=== PATIENT | female | born 1960 | race Caucasian/White ===

== ENCOUNTER 2016-12-09 14:03 | Observation (INO) | payer OTHER, SELFPAY ==
[2016-12-09] VITALS (9 sets, daily range): BP systolic 106–164; BP diastolic 66–98; PULSE 75–94; RESP 16–18; TEMP 35.7–37.3; O2SAT 88–99; BMI 42.3; BMI 43.6
--- NOTE | 2016-12-09 14:11 | CT_ITS ---
STUDY: CT ABDOMEN AND PELVIS WITHOUT CONTRAST REASON FOR EXAM: Female, 56 years old. Right-sided abdominal pain today RADIATION DOSAGE (If Supplied By Facility): CTDIvol = ( 24.10 ) mGy, DLP = ( 1342.61 ) mGycm TECHNIQUE: Transaxial images were obtained from the dome of the diaphragm to the symphysis pubis without oral contrast, and without intravenous contrast. Sagittal and coronal images were reconstructed. Individualized dose optimization techniques were used for this CT. COMPARISON: None. FINDINGS: The visualized lung bases are unremarkable. The visualized portions of the heart are within normal limits. Within the left lobe of the liver, there is a well-defined hypodensity, likely cyst measuring 2.2 x 1.6 cm. Remainder of the liver is within normal limits. There is a solitary gallstone. Normal spleen. Normal pancreas. Normal bilateral adrenal glands. Normal right kidney. Left extrarenal pelvis. No evidence of hydronephrosis. No evidence of left hydroureter. Normal visualized stomach. Normal small intestine. Normal colon. There is a tubular, thick-walled appendix (>7mm), consistent with acute appendicitis. Uncomplicated appendicitis. Normal abdominal aorta. Normal inferior vena cava. Normal retroperitoneum. Normal urinary bladder. There is absence of the uterus consistent with a prior hysterectomy. There is a right-sided inguinal hernia containing adipose tissue. There are diffuse degenerative changes of the visualized lumbar spine. CT/Abdomen/Pelvis without Cont IMPRESSION: Uncomplicated acute appendicitis Electronically Signed: Lopez Zafar DO at 14:57 EDT Tel , Service support ,
[2016-12-09] MEDS: Ondansetron 4 MG/2 ML Vial IV ×2 (14:33→21:21)
[2016-12-09] MEDS: 0.9% Normal Saline 1,000 ML 125 ML IV (14:33)
[2016-12-09 14:35] LABS: Absolute Lymphocyte Count 0.73 X10^3/ul (0.83-4.51); Absolute Neutrophil Count 12.7 X10^3/uL (2.0-7.7); Basophil# 0.01 X10^3/uL; Basophil% 0.1 % (0-1); Hematocrit 38.7 % (37-47); Hemoglobin 12.3 g/dl (12.0-15.0); Lymphocyte # 0.73 X10^3/ul (4.0); Lymphocyte % 5.3 % (19-41); Mean Corp Hgb Conc 31.8 g/gl (32-36); Mean Corpuscular Hgb 26.9 pg (27.0-32.0); Mean Corpuscular Volume 84.7 fL (81-99); Mean Platelet Vol. 10.3 fl (6.2-12.0); Monocyte# 0.33 X10^3/uL; Monocyte% 2.4 % (0-10); Neutrophil # 12.67 X10^3/uL (2.7-7.7); Neutrophil % 92.1 % (47-70); POSITIVE COUNT NO; POSITIVE DIFFERENTIAL NO; POSITIVE MORPHOLOGY NO; Platelet Count 186 K/mm3 (150-450); RBC Distribution Width CV 14.5 % (11.6-14.6); Red Blood Count 4.57 M/mm3 (4.2-5.4); White Blood Count 13.8 K/mm3 (4.4-11.0)
[2016-12-09 14:42] LABS: Bacteria 0 SEEN /hpf (None Seen); Mucous, Urine 0 SEEN /hpf (<or=2+); Red Blood Cells-Urine 0 SEEN /hpf (0-5); White Blood Cells 0 SEEN /hpf (0-5)
[2016-12-09 14:45] LABS: Color, Urine Yellow (Yellow); Glucose, Dipstick Normal (Normal); Ketone-Dipstick 5 mg/dl (Negative); Leukocyte Esterase-Dipstick Negative /ul (Negative); Nitrite-Dipstick Negative (Negative); Occult Blood-Urine 50 /ul (Negative); Protein-Dipstick 15 mg/dl (Negative); Urine Bilirubin Dipstick Negative (Negative); Urine Clarity Clear (Clear); Urine Urobilinogen Normal (Normal)
[2016-12-09 14:50] LABS: Squamous Epithelial Cells - UA 0-5 SEEN /hpf (5-10)
[2016-12-09 14:52] LABS: AST(SGOT) 14 U/L (15-37); Alanine Aminotransfer ALT/SGPT 20 U/L (12-78); Albumin, Serum 3.5 g/dL (3.4-5.0); Alkaline Phosphatase 112 U/L (45-117); Anion Gap 8 (5-15); BUN 12 mg/dL (7-18); BUN/Creat Ratio 24.4 RATIO (10-20); Bilirubin, Direct 0.12 mg/dL (0.00-0.30); Calcium,Total 8.7 mg/dL (8.5-10.1); Chloride 106 mmol/L (98-107); Creatinine, Serum 0.49 mg/dL (0.55-1.02); EST Glomerular Filtration Rate 139 mL/min (>60); Est Glom Filt Rate - Afr Amer 168 mL/min (>60); Estimated Creatinine Clearance 141.93 ml/min; Globulin 4.1 g/dL (2.3-3.5); Glucose 119 mg/dL (70-110); Lipase 78 U/L (73-393); Protein, Total 7.6 g/dL (6.4-8.2); Sodium Level 140 mmol/L (136-145)
--- NOTE | 2016-12-09 15:13 | ED.VISSUMM ---
- ER Visit Summary Date of Service: 12/09/16 Chief Complaint: [] Right upper quadrant pain today History of Present Illness: The patient is a 56 F [] right upper quadrant pain today it is getting progressively worse she has had nausea but no vomiting no fever she has no abnormalities with bowel bladder habits that have been normal she has no history of abdominal ailment such as gallbladder disease ulcers, in fact she denies really any significant past history Physical Examination: [] Racing around the room holding her right upper quadrant head neck she is a very large woman head neck chest unremarkable the abdomen there is some mild pain to the right upper quadrant is a vague pain to the right middle quadrant there is no flank pain in the abdomen is is is obese upper lower extremities otherwise unremarkable neurologically she is normal her back is unremarkable Test Results: [] Emergency Department Course and Treatment: [] Her white count is 13.[address] of the abdomen show signs of appendicitis see that report a solitary gallstone she has been medicated her UA and chemistries are unremarkable At this time I spoke with the patient spoke with Dr. Russell asset protection manager for surgery will be in to see the patient for further management of all the above Treatment Plan: [] Disposition: [] Admit stable Impression: [] Abdominal pain, acute appendicitis, surgery evaluation underway ED Disposition - Plan for ED Patient: Chief Complaint: Abd Pain Referrals: Care Physician,No Primary [Primary Care Provider] -
--- NOTE | 2016-12-09 15:49 | PCM.HP.STD ---
Problem List (1) Acute appendicitis Status: Acute Qualifiers: Acute appendicitis type: unspecified acute appendicitis type Qualified Code(s): K35.80 - Unspecified acute appendicitis History of Present Illness Date of Admission: 12/09/16 The patient is a 56 year old F presents after being awoken this morning at 3 AM with generalized abdominal pain and the need to go the bathroom. She had a loose bowel movement. She reports no fevers or chills. She said that she had some dry heaving this morning. She is not having vomiting. She does not describe any nausea at this time. She says that her abdominal pain is generalized in the lower abdomen. Past Medical History Allergies No Known Allergies Allergy (Verified 12/09/16 14:03) Home Medications: Ambulatory Orders Medication Instructions Recorded No Known/Unobtainable [No Known 12/09/16 Home Medications] Surgical History: hysterectomy, - - Tubal ligation Lives: Spouse/ Significant Other Smoking Status: Never smoker Alcohol: None Drugs: None - *Family History Maternal History Items: No pertinent history Review of Systems Constitutional: Reports: Anorexia. Denies: Chills, Fever, Weight Change HEENT: Denies: Difficulty Hearing, Difficulty Swallowing Cardiovascular: Denies: Chest Pain Respiratory: Denies: Cough, Shortness of Breath Gastrointestinal: Reports: Abdominal Pain - Lower abdominal pain. Denies: Nausea, Vomiting Genitourinary: Denies: Dysuria Musculoskeletal: Denies: Joint Tenderness Skin: Denies: Dryness Neurological: Denies: Balance problems Psychiatric: Denies: Anxiety, Depression Hematologic/ Lymphatic: Denies: Anemia VTE Information - Inpt Only VTE Present on Admission: No VTE Mechan Device Prophylaxis: SCD's VTE Pharm Prophylaxis ordered?: Yes Patient Problems: Active and Suspected Problems Acute appendicitis (Acute) - Physical Exam General: Alert, Oriented x3, Cooperative HEENT: Atraumatic, PERRLA, EOMI, Normocephalic Neck: Supple, No JVD Lungs: Clear to auscultation, Normal air movement Cardiovascular: Regular rate, Regular Rhythm Abdomen: Soft, Tender - Tender in the right lower and right upper quadrant. No guarding or rebound Extremities: No edema, Capillary Refill Less than 3 Seconds Skin: No rashes, No breakdown Musculoskeletal: No Tenderness to Palpation of Joints or Extremities Lymphatic: No Cervical, Supraclavicular, or Inguinal Adenopathy Neurological: Cranial nerves II-XII grossly intact Psych/Mental Status: Normal Affect, Appropriate Vital Signs Temp Pulse Resp BP Pulse Ox 96.2 F 90 18 164/98 97 12/09/16 14:03 12/09/16 14:03 12/09/16 14:03 12/09/16 14:03 12/09/16 14:03 Oxygen Delivery Method Room Air Weight: 133.719 kg Body Mass Index (BMI) 42.3 Laboratory Tests Past 24 Hrs 12/09/16 12/09/16 12/09/16 14:25 14:25 14:25 WBC 13.8 H RBC 4.57 Hgb 12.3 Hct 38.7 MCV 84.7 MCH 26.9 L MCHC 31.8 L RDW 14.5 RDW Differential 45.0 H Plt Count 186 MPV 10.3 Immature Gran % (Auto) 0.100 Neut % (Auto) 92.1 H Lymph % (Auto) 5.3 L [place] % (Auto) 2.4 Eos % (Auto) 0.0 Baso % (Auto) 0.1 Absolute Neuts (auto) 12.7 H Absolute Lymphs (auto) 0.73 L Total Counted Not Reportable Sodium 140 Potassium 4.0 Chloride 106 Carbon Dioxide 26.0 Anion Gap 8 BUN 12 Creatinine 0.49 L Estim Creat Clear Calc 141.93 Est GFR (MDRD) Af Amer 168 Est GFR (MDRD) Non-Af 139 BUN/Creatinine Ratio 24.4 H Glucose 119 H Calcium 8.7 Total Bilirubin 0.40 Direct Bilirubin 0.12 AST 14 L ALT 20 Alkaline Phosphatase 112 Total Protein 7.6 Albumin 3.5 Globulin 4.1 H Lipase 78 Serum , Qual Pending Urine Color Urine Clarity Urine pH Ur Specific [place] Urine Protein Urine Glucose (UA) Urine Ketones Urine Occult Blood Urine Nitrite Urine Bilirubin Urine Urobilinogen Ur Leukocyte Esterase Urine RBC Urine WBC Ur Squamous Epith Cells Urine Bacteria Urine Mucus 12/09/16 14:35 WBC RBC Hgb Hct MCV MCH MCHC RDW RDW Differential Plt Count MPV Immature Gran % (Auto) Neut % (Auto) Lymph % (Auto) [place] % (Auto) Eos % (Auto) Baso % (Auto) Absolute Neuts (auto) Absolute Lymphs (auto) Total Counted Sodium Potassium Chloride Carbon Dioxide Anion Gap BUN Creatinine Estim Creat Clear Calc Est GFR (MDRD) Af Amer Est GFR (MDRD) Non-Af BUN/Creatinine Ratio Glucose Calcium Total Bilirubin Direct Bilirubin AST ALT Alkaline Phosphatase Total Protein Albumin Globulin Lipase Serum , Qual Urine Color Yellow Urine Clarity Clear Urine pH 7.0 Ur Specific [place] 1.010 Urine Protein 15 H Urine Glucose (UA) Normal Urine Ketones 5 H Urine Occult Blood 50 H Urine Nitrite Negative Urine Bilirubin Negative Urine Urobilinogen Normal Ur Leukocyte Esterase Negative Urine RBC 0 SEEN Urine WBC 0 SEEN Ur Squamous Epith Cells 0-5 SEEN Urine Bacteria 0 SEEN Urine Mucus 0 SEEN Clinical Impression(s) from Imaging Studies Abdomen/Pelvis CT 12/09/16 14:11 IMPRESSION: Uncomplicated acute appendicitis Electronically Signed: Lopez Zafar DO at 14:57 EDT Tel , Service support , Assessment/Plan Active and Suspected Problems Acute appendicitis (Acute) 56-year-old female with acute appendicitis 1. Patient appears to have acute appendicitis on her CT. She also has leukocytosis and right lower quadrant pain. I described these findings to her as well as a described the procedure of laparoscopic appendectomy. I described the risks of the procedure including but not limited to bleeding, infection, damage to surrounding organs such as bowel. The patient understands the risks and is want to proceed with surgery. 2. The patient will give perioperative antibiotics and at least one more dose this evening. I will admit her for observation after surgery with IV fluids and clear liquids and plan for discharge tomorrow morning if she is tolerating them well. Vishal Russell MD Pager: [facility] [address], [place] [phone] Office:
--- NOTE | 2016-12-09 15:54 | HP.PCM_ITS ---
Problem List (1) Acute appendicitis Status: Acute Qualifiers: Acute appendicitis type: unspecified acute appendicitis type Qualified Code (s): K35.80 - Unspecified acute appendicitis History of Present Illness Date of Admission: 12/09/16 The patient is a 56 year old F presents after being awoken this morning at 3 AM with generalized abdominal pain and the need to go the bathroom. She had a loose bowel movement. She reports no fevers or chills. She said that she had some dry heaving this morning. She is not having vomiting. She does not describe any nausea at this time. She says that her abdominal pain is generalized in the lower abdomen. Past Medical History Allergies No Known Allergies Allergy (Verified 12/09/16 14:03) Home Medications: Ambulatory Orders Medication Instructions Recorded No Known/Unobtainable [No Known 12/09/16 Home Medications] Surgical History: hysterectomy, - - Tubal ligation Lives: Spouse/ Significant Other Smoking Status: Never smoker Alcohol: None Drugs: None - *Family History Maternal History Items: No pertinent history Review of Systems Constitutional: Reports: Anorexia. Denies: Chills, Fever, Weight Change HEENT: Denies: Difficulty Hearing, Difficulty Swallowing Cardiovascular: Denies: Chest Pain Respiratory: Denies: Cough, Shortness of Breath Gastrointestinal: Reports: Abdominal Pain - Lower abdominal pain. Denies: Nausea, Vomiting Genitourinary: Denies: Dysuria Musculoskeletal: Denies: Joint Tenderness Skin: Denies: Dryness Neurological: Denies: Balance problems Psychiatric: Denies: Anxiety, Depression Hematologic/ Lymphatic: Denies: Anemia VTE Information - Inpt Only VTE Present on Admission: No VTE Mechan Device Prophylaxis: SCD's VTE Pharm Prophylaxis ordered?: Yes Patient Problems: Active and Suspected Problems Acute appendicitis (Acute) - Physical Exam General: Alert, Oriented x3, Cooperative HEENT: Atraumatic, PERRLA, EOMI, Normocephalic Neck: Supple, No JVD Lungs: Clear to auscultation, Normal air movement Cardiovascular: Regular rate, Regular Rhythm Abdomen: Soft, Tender - Tender in the right lower and right upper quadrant. No guarding or rebound Extremities: No edema, Capillary Refill Less than 3 Seconds Skin: No rashes, No breakdown Musculoskeletal: No Tenderness to Palpation of Joints or Extremities Lymphatic: No Cervical, Supraclavicular, or Inguinal Adenopathy Neurological: Cranial nerves II-XII grossly intact Psych/Mental Status: Normal Affect, Appropriate Vital Signs Temp Pulse Resp BP Pulse Ox 96.2 F 90 18 164/98 97 12/09/16 14:03 12/09/16 14:03 12/09/16 14:03 12/09/16 14:03 12/09/16 14:03 Oxygen Delivery Method Room Air Weight: 133.719 kg Body Mass Index (BMI) 42.3 Laboratory Tests Past 24 Hrs 12/09/16 12/09/16 12/09/16 14:25 14:25 14:25 WBC 13.8 H RBC 4.57 Hgb 12.3 Hct 38.7 MCV 84.7 MCH 26.9 L MCHC 31.8 L RDW 14.5 RDW Differential 45.0 H Plt Count 186 MPV 10.3 Immature Gran % (Auto) 0.100 Neut % (Auto) 92.1 H Lymph % (Auto) 5.3 L [place] % (Auto) 2.4 Eos % (Auto) 0.0 Baso % (Auto) 0.1 Absolute Neuts (auto) 12.7 H Absolute Lymphs (auto) 0.73 L Total Counted Not Reportable Sodium 140 Potassium 4.0 Chloride 106 Carbon Dioxide 26.0 Anion Gap 8 BUN 12 Creatinine 0.49 L Estim Creat Clear Calc 141.93 Est GFR (MDRD) Af Amer 168 Est GFR (MDRD) Non-Af 139 BUN/Creatinine Ratio 24.4 H Glucose 119 H Calcium 8.7 Total Bilirubin 0.40 Direct Bilirubin 0.12 AST 14 L ALT 20 Alkaline Phosphatase 112 Total Protein 7.6 Albumin 3.5 Globulin 4.1 H Lipase 78 Serum , Qual Pending Urine Color Urine Clarity Urine pH Ur Specific [place] Urine Protein Urine Glucose (UA) Urine Ketones Urine Occult Blood Urine Nitrite Urine Bilirubin Urine Urobilinogen Ur Leukocyte Esterase Urine RBC Urine WBC Ur Squamous Epith Cells Urine Bacteria Urine Mucus 12/09/16 14:35 WBC RBC Hgb Hct MCV MCH MCHC RDW RDW Differential Plt Count MPV Immature Gran % (Auto) Neut % (Auto) Lymph % (Auto) [place] % (Auto) Eos % (Auto) Baso % (Auto) Absolute Neuts (auto) Absolute Lymphs (auto) Total Counted Sodium Potassium Chloride Carbon Dioxide Anion Gap BUN Creatinine Estim Creat Clear Calc Est GFR (MDRD) Af Amer Est GFR (MDRD) Non-Af BUN/Creatinine Ratio Glucose Calcium Total Bilirubin Direct Bilirubin AST ALT Alkaline Phosphatase Total Protein Albumin Globulin Lipase Serum , Qual Urine Color Yellow Urine Clarity Clear Urine pH 7.0 Ur Specific [place] 1.010 Urine Protein 15 H Urine Glucose (UA) Normal Urine Ketones 5 H Urine Occult Blood 50 H Urine Nitrite Negative Urine Bilirubin Negative Urine Urobilinogen Normal Ur Leukocyte Esterase Negative Urine RBC 0 SEEN Urine WBC 0 SEEN Ur Squamous Epith Cells 0-5 SEEN Urine Bacteria 0 SEEN Urine Mucus 0 SEEN Clinical Impression(s) from Imaging Studies Abdomen/Pelvis CT 12/09/16 14:11 IMPRESSION: Uncomplicated acute appendicitis Electronically Signed: Lopez Zafar DO at 14:57 EDT Tel , Service support , Assessment/Plan Active and Suspected Problems Acute appendicitis (Acute) 56-year-old female with acute appendicitis 1. Patient appears to have acute appendicitis on her CT. She also has leukocytosis and right lower quadrant pain. I described these findings to her as well as a described the procedure of laparoscopic appendectomy. I described the risks of the procedure including but not limited to bleeding, infection, damage to surrounding organs such as bowel. The patient understands the risks and is want to proceed with surgery. 2. The patient will give perioperative antibiotics and at least one more dose this evening. I will admit her for observation after surgery with IV fluids and clear liquids and plan for discharge tomorrow morning if she is tolerating them well. Vishal Russell MD Pager: [facility] [address], [place] [phone] Office:
--- NOTE | 2016-12-09 16:42 | APP_PTH ---
PATIENT: JOVAN KWON LOC: MS3 U#:[id number] AGE/SX: 56/F ROOM: MS312 RE12/09/[address]: Dr. Vishal Russell MD : 1960 BED: 1 DIS: 12/10/2016 SPEC #: [id number] RECD: 12/11/16 10:56 STATUS: MARQUEZ REAmanda #: [id number] IRVING: 12/09/16 16:[address]: Vishal Russell DEPT: SURGICAL PATHOLOGY RECD BY: Shree Gaffney ENTERED: 12/11/16 10:56 SP TYPE: APPENDIX OTHR DR: No Primary Care Phys Tissues: Appendix, NOS Procedures: Surgery Specimen Level III HEADER OPERATION: Laparoscopic appendectomy PRE-OP DIAGNOSIS: Acute appendicitis TISSUE SUBMITTED: Appendix MICROSCOPIC DIAGNOSIS Appendix: Acute appendicitis and periappendicitis. SJ:dmitry 12/12/16 MICROSCOPIC DESCRIPTION Slides are reviewed. GROSS DESCRIPTION Received is one container labeled with the patient's name and designated appendix. The specimen consists of an L-shaped appendix measuring 11 cm in length and up to 1.2 cm in average diameter. The attached periappendiceal adipose tissue measures up to 3.5 cm in width. The serosal surface is covered with toro purulent exudate. No obvious perforation is identified. The lumen contains fecal material. The mucosa is congested and hemorrhagic. No fecalith is identified. Recording Clerk sections are submitted in one cassette. / SJ:dmitry 12/11/16 TC:2 CPT: 96777
[2016-12-09] MEDS: Bupiv/Epi 0.25% 30 ML Vial (17:17)
--- NOTE | 2016-12-09 17:31 | OP.PCM_ITS ---
Problem List (1) Acute appendicitis Status: Acute Qualifiers: Acute appendicitis type: unspecified acute appendicitis type Qualified Code (s): K35.80 - Unspecified acute appendicitis Report of Operation Date of Procedure: 12/09/16 Pre-Operative Diagnosis: Acute appendicitis Post-Operative Diagnosis: Same Surgery/Procedure Performed:: Laparoscopic appendectomy Description of Surgical Findings:: Patient had an inflamed appendix. Wound class III. Specimen's removed: Appendix Description of Procedure: The patient was brought into the operating room and general anesthesia was induced. The left arm was tucked and the abdomen was prepped and draped in usual sterile fashion. A small midline incision was made superior to the umbilicus and deepened to the level of the fascia. The fascia was elevated and incised. The peritoneum was also elevated and incised. A finger sweep was performed and a balloon trocar was placed into the abdomen and inflated. The abdomen was insufflated to 15 mmHg and the camera was inserted and the abdomen was inspected for any injuries upon entering the abdomen. There were none. The patient did have adhesions in the lower abdomen. The patient was placed in Trendelenburg position and a 5 mm ports placed in the left lower quadrant and suprapubic areas under direct visualization avoiding the adhesions. Next using atraumatic bowel graspers the appendix was identified. The appendix was grasped and elevated and a harmonic scalpel was used to take down the mesoappendix. A stapler was used to come across the base of the appendix. The appendix was then placed in Endo Catch bag and removed through the umbilical incision. The staple line was inspected and found to be hemostatic and intact. The 2 5 mm ports are removed under direct visualization. The balloon trocar was deflated and removed and all the air was removed from the abdomen. The umbilical incision fascia was closed with an 0 Vicryl [id number] suture. The incisions were then irrigated with saline and dried. Local anesthetic was injected into the incision sites. The skin incisions were then closed with interrupted 4-0 Monocryl suture and Steri-Strips. Bandages were applied and the patient was awoken and taken to PACU in stable condition. Patient tolerated the procedure well. - Admit VTE Documentation VTE Mechan Device Prophylaxis: SCD's
[2016-12-09] MEDS: Dextrose 5%-Lactated Ringers 1,000 ML 125 ML IV (18:51)
[2016-12-09] MEDS: 0.9% NaCl Peripheral Flush Adult/Peds IV (21:21)
[2016-12-09] MEDS: Acetaminophen 325 MG Tablet 650 MG PO (22:24)
[2016-12-10 02:15] VITALS: BP 132/79; PULSE 86; RESP 18; TEMP 36.6; O2SAT 96
[2016-12-10] MEDS: Dextrose 5%-Lactated Ringers 1,000 ML 125 ML IV ×2 (02:24→11:52)
[2016-12-10] MEDS: 0.9% NaCl Peripheral Flush Adult/Peds IV (07:27)
[2016-12-10] MEDS: Ondansetron 4 MG/2 ML Vial IV (07:27)
[2016-12-10 08:09] VITALS: BP 121/68; PULSE 72; RESP 20; TEMP 36.5; O2SAT 94
[2016-12-10 08:11] VITALS: O2SAT 91
--- NOTE | 2016-12-10 08:49 | PN.SURG_ITS ---
Patient Problems: Active and Suspected Problems Acute appendicitis (Acute) Subjective: Patient reports that she is having nausea this morning. She has not vomited. She has no abdominal pain. She also feels like she has a severe headache which may be a migraine. - Physical Exam General: Alert, Oriented x3, Cooperative, No apparent distress HEENT: Atraumatic Neck: Supple Lungs: Normal air movement Cardiovascular: Regular rate, Regular Rhythm Abdomen: Soft, Non Tender, Non-Distended, - - Incisions are clean dry and intact Skin: No rashes Musculoskeletal: No Tenderness to Palpation of Joints or Extremities Neurological: Cranial nerves II-XII grossly intact Psych/Mental Status: Normal Affect Vital Signs Temp Pulse Resp BP Pulse Ox 97.7 F 72 20 121/68 91 12/10/16 08:09 12/10/16 08:09 12/10/16 08:09 12/10/16 08:09 12/10/16 08:11 Oxygen Flow Rate 1 Oxygen Delivery Method Room Air Weight: 137.9 kg Body Mass Index (BMI) 43.6 Intake and Output for Last 24 Hours 12/08/16 12/09/16 12/10/16 23:59 23:59 23:59 Intake Total 1700 1886 Output Total 180 Balance 1700 1706 Assessment/Plan Active and Suspected Problems Acute appendicitis (Acute) 56-year-old female with acute appendicitis status post laparoscopic appendectomy , POD 1 1. Patient has nausea and headache which may be related anesthesia or migraine. Continue p.o. pain medications as needed for headache. The patient also reports she is not taking anything by mouth yet. Once she is tolerating a diet she will be discharged home. Vishal Russell MD Pager: [facility] [address], [address] [phone] Office:
--- NOTE | 2016-12-10 08:51 | PCM.DC.APPY ---
Discharge Diet: Light diet - advance as tolerated Discharge Activity: May Not Drive - for 3-5 days or while taking narcotic pain meds. May shower in (days): 1 Lifting Restrictions: 20 lbs for 2 weeks Call your doctor if your incision/area has: Continuous Slow Oozing, Sudden Increased Bleeding, Increased Pain/ Swelling, Increased Redness, Foul Smelling Discharge Call your doctor if you observe: Fever of 101 or Higher Suture Line Care: Avoid Pulling/Pushing, Avoid Pinching/Bending Additional Dressing/Incision Instructions:: Keep dressing clean and dry. Change or remove dressing in 2 days. Leave steri strips for 1 week. May protect with a gauze bandaid. Medications to take at Discharge Hydrocodone Bitart/Apap 5-325 [[place] 5/325] 1 - 2 tablet PO Q4H PRN PRN #30 tablet 12/10/16 Allergies/Adverse Reactions: Allergies No Known Allergies Allergy (Verified 12/09/16 14:03) The following prescriptions were given: Hydrocodone Bitart/Apap 5-325 [[place] 5/325] 1 - 2 tablet PO Q4H PRN PRN #30 tablet PRN Reason: Severe Pain (-12/12) Primary Care Physician: Care Physician,No Primary [Primary Care Provider] - Please Follow Up With: Vishal Russell When: call sunday to make 2 week follow up appt [phone]
--- NOTE | 2016-12-10 08:53 | DS.PCM_ITS ---
Discharge Date and Diagnosis Date of Admission: 12/09/16 Date of Discharge: 12/10/16 - Primary Discharge Diagnosis Active and Suspected Problems Acute appendicitis (Acute) Hospital Course and Treatment Imaging Results: Clinical Impression(s) from Imaging Studies Abdomen/Pelvis CT 12/09/16 14:11 IMPRESSION: Uncomplicated acute appendicitis Electronically Signed: Lopez Zafar at 14:57 EDT Tel , Service support , Operations: appendectomy Procedures: None Summary of Care Provided: The patient is a 56 year old F who presented to the emergency room with right- sided pain. CT revealed appendicitis. She was taken that day for a laparoscopic appendectomy. The following morning she was having headache and nausea. When she tolerated a diet she was discharged home in stable condition. She will follow-up with me in 2 weeks. Discharge Diet: Light diet - advance as tolerated Discharge Activity: May Not Drive - for 3-5 days or while taking narcotic pain meds. May shower in (days): 1 Call your doctor if your incision/area has: Continuous Slow Oozing, Sudden Increased Bleeding, Increased Pain/ Swelling, Increased Redness, Foul Smelling Discharge Call your doctor if you observe: Fever of 101 or Higher Suture Line Care: Avoid Pulling/Pushing, Avoid Pinching/Bending Additional Dressing/Incision Instructions:: Keep dressing clean and dry. Change or remove dressing in 2 days. Leave steri strips for 1 week. May protect with a gauze bandaid. Home Medications: Medications to take at Discharge Hydrocodone Bitart/Apap 5-325 [[place] 5/325] 1 - 2 tablet PO Q4H PRN PRN #30 tablet 12/10/16 Following Prescrptions Were Given to Patient: Hydrocodone Bitart/Apap 5-325 [[place] 5/325] 1 - 2 tablet PO Q4H PRN PRN #30 tablet PRN Reason: Severe Pain (-12/12) Primary Care Physician: Care Physician,No Primary [Primary Care Provider] - Please Follow Up With: Vishal Russell When: call sunday to make 2 week follow up appt [phone] Meaningful Use Info Meaningful Use Diagnoses (Choose all that apply): None applicable
[2016-12-10] MEDS: Ibuprofen 600 MG Tablet PO (09:23)
[2016-12-10 12:15] VITALS: BP 118/73; PULSE 71; RESP 20; TEMP 36.5; O2SAT 97
[2016-12-10 15:45] VITALS: BP 119/76; PULSE 77; RESP 20; TEMP 36.6; O2SAT 97
== END 2016-12-10 16:23 | disposition home or self-care (01) ==
PROVIDERS: Admitting Provider Surgery; Emergency Provider Emergency Medicine; Visit Provider Surgery
DX: K35.80 Unspecified acute appendicitis (principal)
CPT/HCPCS: 00840; 44970; 74176; 80048; 80076; 81001; 83690; 85025; 88304; 96361; 96374; 96375; 96376; 99218; 99283; J7030; A4216; G0378; J2405

== ENCOUNTER → 2018-01-31 10:48 | Outpatient (CLI) | payer OTHER, SELFPAY ==
[2016-12-09 18:21] VITALS: BMI 43.6
--- NOTE | 2018-01-31 10:48 | COLBX_PTH ---
PATIENT: JOVAN KWON LOC: [facility] U#:[id number] AGE/SX: 64/F ROOM: RE01/31/[address]: Dr. Yan Mejia MD : 1960 BED: DIS: SPEC #: [id number] RECD: 01/31/18 15:28 STATUS: MARQUEZ LAURA #: [id number] IRVING: 01/31/18 10:[address]: Yan Mejia DEPT: SURGICAL PATHOLOGY RECD BY: Trevor Mendoza ENTERED: 02/01/18 07:57 SP TYPE: COLON BX OTHR DR: No Primary Care Phys [facility] Tissues: Sigmoid colon biopsy Procedures: Surgery Specimen Level IV HEADER OPERATION: Colonoscopy with polypectomy PRE-OP DIAGNOSIS: High risk screen, positive Cologuard TISSUE SUBMITTED: Polyp sigmoid at 20 cm, rule out adenoma MICROSCOPIC DIAGNOSIS Sigmoid colon polypectomy at 20 cm, biopsy: Tubular adenoma. AM:dmitry 02/04/18 MICROSCOPIC DESCRIPTION Slides are reviewed. GROSS DESCRIPTION Received in fixative is one container labeled with the patient's name and designated polyp sigmoid at 20 cm. The specimen consists of a piece of johnson-pink polyp measuring 0.5 x 0.5 x 0.3 cm. The specimen is totally submitted in one cassette. / SJ:rg 02/01/18 TC:5 CPT: 24810
--- OUTSIDE RECORDS SUMMARY | 2018-03-28 22:40 | XMS RPT_ITS | Clinical Summary ---
:1960 Author Organization [facility], [facility] Address [address] [place] [phone] Phone Care Team Providers Name Role Phone Drew IRVING, Vishal Polo Unavailable Conditions or Problems Problem Problem Onset Status Entry Provider Comment Standard Annotate Name Code Date Date Description Appendicit [id number] Active Vishal Polo Acute is, acute (SNOMED CT) / Drew appendicitis Medications Medication Instructions Start Date Stop Date Generic Name NDC Provider Observed no known medications at Medications Administered No information available. Allergies, Adverse Reactions, Alerts Observed no known allergies at Results Date Name Value Unit Range Flag Description Office Visit: f/u appenectomy MEDS REVIEW Done Documentation of current medications (procedure) NKMED T Documentation of current medications (procedure) FALLRSKASSES No Fall risk assessment ORALTOBACUSE Never Tobacco smoking status NHIS SMOK STATUS Never smoker Tobacco use [facility] Plan of Care Type Date Detail Pending order Follow Up as needed Procedures No information available. Vital Signs No information available.
--- OUTSIDE RECORDS SUMMARY | 2018-03-28 22:40 | XMS RPT_ITS ---
:1960 Author Organization [facility] Care Team Providers Name Role Phone Yan Mejia Attending Unavailable Yan Mejia Referring Unavailable Primay Care Physicia, No Primary Care Unavailable PROBLEMS PROBLEMS No Problem Records FoundPROCEDURES PROCEDURES No Procedure Records FoundRESULTS RESULTS COLON BIOPSY (CHOOSE Observed: 01/31/2018 Status: F Source: [facility]) 10:48 AM [facility] REPOSIT[facility] Patient: JOVAN KWON : 1960 (57/F) Acct Num: [id number] Phys: Yan Mejia Unit Num: [id number] Loc: [facility]SPEC Specimen: [id number] Received: 01/31/18 1528 Spec Type: COLON BX TISSUES 1 TISSUES: Sigmoid colon biopsy GROSS DESCRIPTION Received in fixative is one container labeled with the patient's name and designated polyp sigmoid at 20 cm. The specimen consists of a piece of johnson- pink polyp measuring 0.5 x 0.5 x 0.3 cm. The specimen is totally submitted in one cassette. / SJ:dmitry 02/01/18 TC:5 CPT: 64513 HEADER OPERATION: Colonoscopy with polypectomy PRE-OP DIAGNOSIS: High risk screen, positive Cologuard TISSUE SUBMITTED: Polyp sigmoid at 20 cm, rule out adenoma MICROSCOPIC DESCRIPTION Slides are reviewed. MICROSCOPIC DIAGNOSIS Sigmoid colon polypectomy at 20 cm, biopsy: Tubular adenoma. AM:dmitry 02/04/18 Signed Alan Sanford 02/04/18 <signature on file> Performed By: #### PCOLBX #### [facility] [address] [place], [address] ALLERGIES ALLERGIES DATE TYPE / CODE NAME / CODE REACTION SEVERITY SOURCE 12/09/2016 Drug No Known Unknown [facility] Allergy/4160 Allergies/F00 Hospital 30869(SNOMED [id number](RXNOR Repository CT) M) ENCOUNTERS ENCOUNTERS ADMIT/DISCHARGE ACCOUNT ADMITTING ENCOUNTER LOCATION SOURCE NUMBER CLASS 01/31/2018 [id number] Ambulatory [address] ing:LABSPEC Repository PAYERS PAYERS ENCOUNTER GUARANTOR PAYER SUBSCRIBER SOURCE 01/31/2018 [facility]AN [facility]ano [id number] [facility]:[place] DUONGB: [address], Number: [id number] [address]Gnn: [id number] Repository Date:[id number] () [id number], [place] [address]AF: 01/31/2018 Secondary NOT GIVENCE Raymond Insurance:SELF PAY [facility] Number: Effective Repository Date:2018-01-31
--- OUTSIDE RECORDS SUMMARY | 2018-03-28 22:40 | XMS RPT_ITS | Clinical Summary ---
:1960 Author Organization [facility], [facility] Address [address] [place] [address] Phone Care Team Providers Name Role Phone Drew IRVING, Vishal Polo Unavailable Conditions or Problems Problem Problem Onset Status Entry Provider Comment Standard Annotate Name Code Date Date Description Appendicit [id number] Active Vishal Polo Acute is, acute (SNOMED [...] NHIS SMOK STATUS Never smoker Tobacco use [facility] Plan of Care Type Date Detail Appointment 01:30 PM Vishal Russell MD, [address] [place] [address], [address], [place], [address], Pending order Follow Up as needed Procedures No information available. Vital Signs No information available.
== END ==
PROVIDERS: Referring Provider Internal Medicine Gastroenterology; Visit Provider Internal Medicine Gastroenterology
DX: D12.5 Benign neoplasm of sigmoid colon (principal)
CPT/HCPCS: 88305

== ENCOUNTER → 2019-12-25 07:07 | Outpatient (CLI) | payer OTHER, SELFPAY ==
--- NOTE | 2019-12-25 07:10 | BI_ITS ---
MAMMOGRAPHY - BILATERAL SCREENING REASON FOR EXAM: Female, 59 years old. Routine annual screening examination. PERTINENT HISTORY: Mother with breast cancer. TECHNIQUE: Digital bilateral breast irma (3D mammographic acquisition) in the CC and MLO projections. 2-D mediolateral oblique (MLO) and craniocaudad (CC) views of both breasts were obtained. CAD: Full Field Digital Mammography with Computer Added Detection was performed. COMPARISON: Comparison is made with prior examination dated 06/03/2014. FINDINGS: Breast Composition: The breasts are almost entirely fatty. There are no dominant masses or suspicious calcifications. Stable small benign appearing bilateral axillary lymph nodes. No other significant abnormalities are identified. There has been no significant change since the prior study. BI/SCREEN MAMM (CAD) W/IRMA BILAT IMPRESSION: Stable bilateral screening mammogram. Yearly follow-up mammogram recommended. (A) ASSESSMENT CATEGORY: BIRADS Category 2: Benign. A letter regarding these results will be sent to the patient by the facility within 30 days. Approximately 10% of breast cancers are not detected by mammography. A normal mammogram should not delay biopsy of a clinically suspicious abnormality. [id number] Electronically Signed: Artis Pappas, at 8:35 EDT , Service support ,
== END ==
PROVIDERS: PCP Family Medicine; Referring Provider Family Medicine; Visit Provider Family Medicine
DX: Z12.31 Encounter for screening mammogram for malignant neoplasm of breast (principal)
CPT/HCPCS: 77063; 77067

== ENCOUNTER → 2022-01-13 | Outpatient (CLI) | payer OTHER, SELFPAY ==
--- NOTE | 2022-01-13 08:14 | BI_ITS ---
MAMMOGRAPHY - BILATERAL SCREENING REASON FOR EXAM: Female, 61 years old. Routine annual screening examination. PERTINENT HISTORY: Mother with breast cancer. TECHNIQUE: Digital bilateral breast irma (3D mammographic acquisition) in the CC and MLO projections. 2-D mediolateral oblique (MLO) and craniocaudad (CC) views of both breasts were obtained. CAD: Full Field Digital Mammography with Computer Added Detection was performed. COMPARISON: Comparison is made with prior study dated 12/25/2019 and 06/03/2014. FINDINGS: Breast Composition: The breasts are almost entirely fatty. There are no dominant masses or suspicious calcifications. Stable small benign-appearing bilateral axillary lymph nodes. No other significant abnormalities are identified. There has been no significant change since the prior study. BI/SCRN MAMM (CAD)W/IRMA BILAT IMPRESSION: Stable bilateral screening mammogram. Yearly follow-up mammogram recommended. (A) ASSESSMENT CATEGORY: BIRADS Category 2: Benign. A letter regarding these results will be sent to the patient by the facility within 30 days. Approximately 10% of breast cancers are not detected by mammography. A normal mammogram should not delay biopsy of a clinically suspicious abnormality. [id number] Electronically Signed: Artis Pappas MD at 8:58 EST ,
== END | disposition home or self-care (01) ==
LOC: OPBI 08:13
PROVIDERS: PCP Family Medicine; Referring Provider Nurse Practitioner Family; Visit Provider Nurse Practitioner Family
DX: Z12.31 Encounter for screening mammogram for malignant neoplasm of breast (principal); Z80.3 Family history of malignant neoplasm of breast
CPT/HCPCS: 77063; 77067

== ENCOUNTER → 2023-07-03 | Outpatient (CLI) | payer OTHER, SELFPAY ==
--- NOTE | 2023-07-03 15:00 | BI_ITS ---
MAMMOGRAPHY - BILATERAL SCREENING REASON FOR EXAM: Female, 63 years old. Routine annual screening examination. PERTINENT HISTORY: Mother with breast cancer. TECHNIQUE: Digital bilateral breast irma (3D mammographic acquisition) in the CC and MLO projections. 2-D mediolateral oblique (MLO) and craniocaudad (CC) views of both breasts were obtained. CAD: Full Field Digital Mammography with Computer Added Detection was performed. COMPARISON: Comparison is made with prior study January 13, 2022 and December 25, 2019. FINDINGS: Breast Composition: The breasts are almost entirely fatty. There are no dominant masses or suspicious calcifications. Stable small benign appearing bilateral axillary lymph nodes. No other significant abnormalities are identified. There has been no significant change since the prior study. BI/SCRN MAMM (CAD)W/IRMA BILAT IMPRESSION: Stable bilateral screening mammogram. Yearly follow-up mammogram recommended. (A) ASSESSMENT CATEGORY: BIRADS Category 2: Benign. A letter regarding these results will be sent to the patient by the facility within 30 days. Approximately 10% of breast cancers are not detected by mammography. A normal mammogram should not delay biopsy of a clinically suspicious abnormality. [id number] Electronically Signed: Artis Pappas MD at 15:42 EDT ,
== END | disposition home or self-care (01) ==
LOC: OPBI 14:59
PROVIDERS: PCP Family Medicine; Referring Provider Nurse Practitioner Family; Visit Provider Nurse Practitioner Family
DX: Z12.31 Encounter for screening mammogram for malignant neoplasm of breast (principal); Z80.3 Family history of malignant neoplasm of breast
CPT/HCPCS: 77063; 77067

== ENCOUNTER → 2024-07-04 | Outpatient (CLI) | payer OTHER, SELFPAY ==
--- NOTE | 2024-07-04 08:31 | BI_ITS ---
EXAM: SCRN MAMM (CAD)W/IRMA BILAT DATE: 07/04/2024 CLINICAL HISTORY: F, Age 64 y/o , SCREENING BREAST CANCER RISK ASSESSMENT: Has not been calculated. TECHNIQUE: Bilateral screening digital breast tomosynthesis with 2D and 3D images. Computer aided detection. COMPARISON: Prior exam(s) dated 07/03/2023 and 01/13/2022 . FINDINGS: TISSUE DENSITY: The breast tissue is almost entirely fatty. Bilateral Breast Mammographic Findings: No significant masses, calcifications or other abnormalities are identified. Benign round calcifications are seen in both breasts. BI/SCRN MAMM (CAD)W/IRMA BILAT IMPRESSION: OVERALL FINAL ASSESSMENT: BIRADS 2 BENIGN FINDING RECOMMENDATION: Routine annual follow-up in 1 Year A letter with findings and recommendations will be mailed to the patient. Reading Location: [id number]
== END | disposition home or self-care (01) ==
LOC: OPBI 08:30
PROVIDERS: PCP Nurse Practitioner Family; Referring Provider Nurse Practitioner Family; Visit Provider Nurse Practitioner Family
DX: Z12.31 Encounter for screening mammogram for malignant neoplasm of breast (principal)
CPT/HCPCS: 77063; 77067